=== PATIENT | male | born 1945 | race Caucasian/White ===

== ENCOUNTER 2016-08-28 17:29 | Observation (INO) | payer MEDICARE ==
[2016-08-28] MEDS ORDERED: ACETAMINOPHEN TAB 500 MG TAB PO STA (17:57)
[2016-08-28] MEDS ORDERED: ONDANSETRON 4 MG in SODIUM CHLORIDE 0.9% 50 ML IVPB ONE (17:57)
[2016-08-28] MEDS ORDERED: SODIUM CHLORIDE 0.9% 1,000 ML IV ONE (17:57)
[2016-08-28] MEDS ORDERED: ONDANSETRON 4 MG/2 ML VIAL IVP ONE (18:00)
--- NOTE | 2016-08-28 18:05 | ED ---
General Adult HPI - General Chief complaint: Nausea/Vomiting/Diarrhea Stated complaint: nausea, not feeling well, chills Source: patient Mode of arrival: wheelchair Limitations: no limitations - History of Present Illness Initial comments: Patient is a 71-year-old male who presents for evaluation for general malaise, nausea, vomiting 3 weeks. Past medical history significant for cardiovascular disease, diabetes, hypertension, hyperlipidemia, previous stroke. History is severely poor. Patient unable to fully articulate the symptoms that he is having and the duration. Patient states that he generally does not feel well for the past 3 weeks. He states that he began to feel worse after receiving a flu shot at his primary care physician's office. It initially started off as a runny nose and congestion which quickly progressed to nausea vomiting and body aches, frontal headache, intermittent chest pain which she relates to "angina". He is currently having subjective fevers and chills. He has a frontal headache that radiates down to the front of his face. He denies any congestion. States that he is very nauseous and having multiple episodes of emesis. He states that he vomited 4 times today which was mainly just stomach contents. He has a nonproductive cough. Decreased appetite today. Patient states that he has a known history of diabetes and takes insulin but cannot tell me how much she takes it if he is on a sliding scale. The chest pain that he is having he states that it is similar to previous episodes and again relates to his angina. His biggest concerns today are his headache, nausea, vomiting and general malaise. He denies active chest pain currently, congestion , changes in vision, diarrhea, abdominal pain. - Related Data Home Medications Medication Instructions Recorded Confirmed Aspirin 81 mg PO DAILY 08/28/16 08/28/16 Atenolol [Tenormin] 50 mg PO DAILY 08/28/16 08/28/16 Finasteride [Proscar] 5 mg PO DAILY 08/28/16 08/28/16 Hydrocodone/Acetaminophen [[place] 1 tab PO TID PRN 08/28/16 08/28/16 10-325] Insulin Glargine,Hum.rec.anlog 30 unit SQ QAM 08/28/16 08/28/16 [Lantus Solostar] Insulin Lispro [humaLOG Kwikpen] 6 unit SQ ACHS 08/28/16 08/28/16 Losartan Potassium [Cozaar] 50 mg PO DAILY 08/28/16 08/28/16 Nitroglycerin Sl Tabs [Nitrostat] 0.4 mg SUBLINGUAL Q5M PRN 08/28/16 08/28/16 Simvastatin [Zocor] 40 mg PO HS 08/28/16 08/28/16 amLODIPine BESYLATE [Norvasc] 10 mg PO DAILY 08/28/16 08/28/16 busPIRone HCL 7.5 mg PO HS 08/28/16 08/28/16 hydrOXYzine HCL [Atarax] 25 mg PO TID PRN 08/28/16 08/28/16 lamoTRIgine [LaMICtal] 25 mg PO BID 08/28/16 08/28/16 Allergies Allergy/AdvReac Type Severity Reaction Status Date / Time Sulfa (Sulfonamide Allergy Unknown Verified 08/28/16 18:39 Antibiotics) Childhood Review of Systems ROS Statement: Those systems with pertinent positive or pertinent negative responses have been documented in the HPI. ROS Other: All systems not noted in ROS Statement are negative. Past Medical History Past Medical History: Coronary Artery Disease (CAD), Chest Pain / Angina, CVA/ TIA, Diabetes Mellitus, Hyperlipidemia, Hypertension History of Any Multi-Drug Resistant Organisms: None Reported Past Surgical History: Adenoidectomy, Appendectomy, Back Surgery, Cholecystectomy, Heart Catheterization With Stent, Tonsillectomy Past Psychological History: No Psychological Hx Reported, Anxiety Smoking Status: Former smoker Past Alcohol Use History: None Reported Past Drug Use History: None Reported General Exam Limitations: no limitations General appearance: alert, in no apparent distress, other (Does not appear toxic ) Head exam: Present: atraumatic, normocephalic, normal inspection Eye exam: Present: normal appearance, PERRL, EOMI. Absent: scleral icterus, conjunctival injection, periorbital swelling ENT exam: Present: normal exam, mucous membranes moist, other (Dry mucous membranes) Neck exam: Present: normal inspection. Absent: tenderness, meningismus, lymphadenopathy Respiratory exam: Present: normal lung sounds bilaterally, other (Clear bilaterally without wheezes rales or rhonchi.). Absent: respiratory distress, wheezes, rales, rhonchi, stridor Cardiovascular Exam: Present: regular rate, normal rhythm, normal heart sounds, other (Normal S1 and S2. No murmurs.). Absent: systolic murmur, diastolic murmur, rubs, gallop, clicks GI/Abdominal exam: Present: soft, normal bowel sounds, other (Abdomen is soft and minimally tender. Migrating points of tenderness which seemed to be in the epigastric area mostly. Negative Guido sign. Negative McBurney sign. Negative psoas sign. Negative obturator sign. No rebound tenderness. No peritoneal signs.). Absent: distended, tenderness, guarding, rebound, rigid Extremities exam: Present: normal inspection, full ROM, normal capillary refill. Absent: tenderness, pedal edema, joint swelling, calf tenderness Back exam: Present: normal inspection Neurological exam: Present: alert, oriented X3, CN II-XII intact, other ( Cranial nerves II through XII grossly intact without focal neurological deficits. Is not ataxic with his upper extremities per se but moves very slowly. His mentation is appropriate. Moves all 4 extremities. 5 out of 5 strength of the upper or lower extremity is. Gait appears to be intact while ambulating to the room.) Psychiatric exam: Present: normal affect, normal mood Skin exam: Present: warm, dry, intact, normal color, other (There is a cellulitic process to the lower back. It is warm to the touch. No abscess appreciated.). Absent: rash Course Vital Signs 08/28/16 08/28/16 08/28/16 17:32 18:43 19:26 Temperature 99 F Pulse Rate 61 55 L 57 L Respiratory 16 18 14 Rate Blood Pressure 165/74 147/68 143/100 O2 Sat by Pulse 98 96 96 Oximetry 08/28/16 19:52 Temperature Pulse Rate 57 L Respiratory 14 Rate Blood Pressure 146/70 O2 Sat by Pulse 96 Oximetry Medical Decision Making - Medical Decision Making Patient presents with 3 weeks of generalized malaise, nausea, vomiting and intermittent episodes of shortness of breath cough subjective fevers chills chest pain. Very poor historian. Positive physical exam findings include questionable ataxia without lateralizing neurological deficits. His physical exam seems to be appropriate. His vital signs are stable at this time. Reviewed his EKG which revealed a sinus rhythm at 59. TX interval 154. QRS 100. QTc 429. No ST changes. Q waves in the inferior leads. No other arrhythmias. We'll order CT head to investigate this subjective headache and questionable ataxia, basic labs, cardiac profile, urinalysis, EKG. We'll give IV fluids, Zofran, Tylenol. 1951: Laboratory findings as below area unremarkable. Urinalysis negative. CT head revealed no acute process. Chest x-ray revealed no signs of pneumonia. EKG revealed no STEMI. Discussed with the patient. He seems to be more confused and states that he cannot answer basic questions. He is alert and oriented 3 but will sustaining correct answer and then corrects himself. His family member at bedside states that this is not like him at all. He's been acting this way for some time and is normally not forgetful. He states that he now has chest tightness. But states that he has been having chest tightness. Very inconsistent. I have a troponin pending right now. Patient cannot remember his primary care physician's name. We will page medicine on-call for observation. 2002: Discussed the case with [employer] of Dr. Spears - agree to observation. Requesting neuro be consulted. No further orders. - Lab Data Result diagrams: 08/28/16 18:05 08/28/16 18:05 Lab Results 08/28/16 08/28/16 08/28/16 Range/Units 18:05 18:05 18:05 WBC 10.1 (3.8-10.6) k/uL RBC 4.41 (4.30-5.90) m/uL Hgb 12.7 L (13.0-17.5) gm/dL Hct 36.3 L (39.0-53.0) % MCV 82.2 (80.0-100.0) fL MCH 28.8 (25.0-35.0) pg MCHC 35.0 (31.0-37.0) g/dL RDW 14.5 (11.5-15.5) % Plt Count 146 L (150-450) k/uL Neutrophils % 85 % Lymphocytes % 8 % Monocytes % 6 % Eosinophils % 1 % Basophils % 0 % Neutrophils # 8.5 H (1.3-7.7) k/uL Lymphocytes # 0.8 L (1.0-4.8) k/uL Monocytes # 0.6 (0-1.0) k/uL Eosinophils # 0.1 (0-0.7) k/uL Basophils # 0.0 (0-0.2) k/uL Hyperchromasia Slight Poikilocytosis Slight Sodium 137 (137-145) mmol/L Potassium 4.4 (3.5-5.1) mmol/L Chloride 100 (98-107) mmol/L Carbon Dioxide 25 (22-30) mmol/L Anion Gap 12 mmol/L BUN 19 (9-20) mg/dL Creatinine 1.00 (0.66-1.25) mg/dL Est GFR (MDRD) Af Amer >60 (>60 ml/min/1.73 sqM) Est GFR (MDRD) Non-Af >60 (>60 ml/min/1.73 sqM) Glucose 209 H (74-99) mg/dL Plasma Lactic Acid Sai (0.7-2.0) mmol/L Calcium 9.5 (8.4-10.2) mg/dL Magnesium 2.0 (1.6-2.3) mg/dL Total Bilirubin 1.1 (0.2-1.3) mg/dL AST 15 L (17-59) U/L ALT 26 (21-72) U/L Alkaline Phosphatase 94 (38-126) U/L Total Creatine Kinase 53 L (55-170) U/L CK-MB (CK-2) 0.4 (0.0-2.4) ng/mL CK-MB (CK-2) Rel Index 0.8 Total Protein 7.2 (6.3-8.2) g/dL Albumin 4.2 (3.5-5.0) g/dL Urine Color Urine Appearance (Clear) Urine pH (5.0-8.0) Ur Specific [place] (1.001-1.035) Urine Protein (Negative) Urine Glucose (UA) (Negative) Urine Ketones (Negative) Urine Blood (Negative) Urine Nitrate (Negative) Urine Bilirubin (Negative) Urine Urobilinogen (<2.0) mg/dL Ur Leukocyte Esterase (Negative) 08/28/16 08/28/16 Range/Units 18:05 19:20 WBC (3.8-10.6) k/uL RBC (4.30-5.90) m/uL Hgb (13.0-17.5) gm/dL Hct (39.0-53.0) % MCV (80.0-100.0) fL MCH (25.0-35.0) pg MCHC (31.0-37.0) g/dL RDW (11.5-15.5) % Plt Count (150-450) k/uL Neutrophils % % Lymphocytes % % Monocytes % % Eosinophils % % Basophils % % Neutrophils # (1.3-7.7) k/uL Lymphocytes # (1.0-4.8) k/uL Monocytes # (0-1.0) k/uL Eosinophils # (0-0.7) k/uL Basophils # (0-0.2) k/uL Hyperchromasia Poikilocytosis Sodium (137-145) mmol/L Potassium (3.5-5.1) mmol/L Chloride (98-107) mmol/L Carbon Dioxide (22-30) mmol/L Anion Gap mmol/L BUN (9-20) mg/dL Creatinine (0.66-1.25) mg/dL Est GFR (MDRD) Af Amer (>60 ml/min/1.73 sqM) Est GFR (MDRD) Non-Af (>60 ml/min/1.73 sqM) Glucose (74-99) mg/dL Plasma Lactic Acid Sai 1.0 (0.7-2.0) mmol/L Calcium (8.4-10.2) mg/dL Magnesium (1.6-2.3) mg/dL Total Bilirubin (0.2-1.3) mg/dL AST (17-59) U/L ALT (21-72) U/L Alkaline Phosphatase (38-126) U/L Total Creatine Kinase (55-170) U/L CK-MB (CK-2) (0.0-2.4) ng/mL CK-MB (CK-2) Rel Index Total Protein (6.3-8.2) g/dL Albumin (3.5-5.0) g/dL Urine Color Yellow Urine Appearance Clear (Clear) Urine pH 7.0 (5.0-8.0) Ur Specific [place] 1.015 (1.001-1.035) Urine Protein Trace H (Negative) Urine Glucose (UA) 2+ H (Negative) Urine Ketones Negative (Negative) Urine Blood Negative (Negative) Urine Nitrate Negative (Negative) Urine Bilirubin Negative (Negative) Urine Urobilinogen <2.0 (<2.0) mg/dL Ur Leukocyte Esterase Negative (Negative) Disposition Clinical Impression: Altered mental status, Chest pain, Nausea and vomiting, Diabetes Disposition: ADMITTED IP TO THIS HOSP Condition: Good Referrals: None,Stated [Primary Care Provider] - 1-2 days Decision to Admit Reason: Admit from EC
[2016-08-28 18:21] LABS: Basophils % (A) 0 %; CHCM 36.7; Eosinophils # (A) 0.1 k/uL (0-0.7); Eosinophils % (A) 1 %; HCT 36.3 % (39.0-53.0); HDW 3.46; HGB 12.7 gm/dL (13.0-17.5); Hyperchromasia Slight; Luc # (Auto) 0.13; Luc % (Auto) 1; Lymphocytes # (A) 0.8 k/uL (1.0-4.8); Lymphocytes % (A) 8 %; MCH 28.8 pg (25.0-35.0); MCV 82.2 fL (80.0-100.0); Mean Platelet Volume 6.6; Monocytes # (A) 0.6 k/uL (0-1.0); Monocytes % (A) 6 %; Neutrophils # (A) 8.5 k/uL (1.3-7.7); Neutrophils % (A) 85 %; Poikilocytosis Slight; RBC 4.41 m/uL (4.30-5.90); RDW 14.5 % (11.5-15.5); WBC 10.1 k/uL (3.8-10.6); WBC (Perox) 9.81
--- NOTE | 2016-08-28 18:32 | XR ---
EXAMINATION TYPE: XR chest 1V portable DATE OF EXAM: 08/28/2016 6:28 PM COMPARISON: NONE HISTORY: Cough and congestion TECHNIQUE: Single frontal view of the chest is obtained. FINDINGS: Heart and mediastinum are normal. Lungs are clear. Diaphragm is normal. There are chest le ads. Bony thorax is intact. IMPRESSION: Normal chest
--- NOTE | 2016-08-28 18:34 | CT ---
EXAMINATION TYPE: CT brain wo con DATE OF EXAM: 08/28/2016 6:29 PM COMPARISON: NONE HISTORY: weakness and fatigue CT DLP: 1219 mGycm Automated exposure control for dose reduction was used. FINDINGS: There is cerebral cortical atrophy. There is some prominence of the ventricles. There is no mass effe ct nor midline shift. There is no sign of intracranial hemorrhage. The calvarium is intact. There is mild mucosal thickening in the right maxillary sinus. IMPRESSION: Cerebral atrophy and mild normal pressure type hydrocephalus. No acute intracranial abnormality.
[2016-08-28 18:35] LABS: ALT 26 U/L (21-72); AST 15 U/L (17-59); Alkaline Phosphatase 94 U/L (38-126); Anion Gap 12 mmol/L; Blood Urea Nitrogen 19 mg/dL (9-20); Calcium 9.5 mg/dL (8.4-10.2); Carbon Dioxide 25 mmol/L (22-30); Chloride 100 mmol/L (98-107); Glucose 209 mg/dL (74-99); Non-African American GFR(MDRD) >60 (>60 ml/min/1.73 sqM); Potassium 4.4 mmol/L (3.5-5.1); Sodium 137 mmol/L (137-145); Total Bilirubin 1.1 mg/dL (0.2-1.3); Total Protein 7.2 g/dL (6.3-8.2)
[2016-08-28] MEDS: SODIUM CHLORIDE 0.9% 1,000 ML IV SCH (18:35)
[2016-08-28 18:54] LABS: Creatine Kinase MB 0.4 ng/mL (0.0-2.4)
[2016-08-28 19:34] LABS: Appearance,Urine Clear (Clear); Bilirubin,Urine Negative (Negative); Glucose,Urine (UA) 2+ (Negative); Ketones,Urine Negative (Negative); Leukocyte Esterase,Urine Negative (Negative); Nitrite,Urine Negative (Negative); Protein,Urine Trace (Negative); Specific Gravity,Urine 1.015 (1.001-1.035); UA Billing (MACRO vs. MICRO) CHEM; Urobilinogen,Urine <2.0 mg/dL (<2.0)
[2016-08-28] MEDS ORDERED: ASPIRIN 81 MG CHEW PO STA (19:50)
[2016-08-28] MEDS ORDERED: NALOXONE 0.4 MG/ML 1 ML VIAL IV PRN (19:59)
[2016-08-28] MEDS ORDERED: hydrOXYzine HCL 25 MG TAB PO PRN (21:51)
[2016-08-28] MEDS ORDERED: HYDROcodone/APAP 10-325MG 1 EACH TAB PO PRN (21:51)
[2016-08-28] MEDS ORDERED: NITROGLYCERIN SL TABS 0.4 MG TAB SUBLINGUAL PRN (21:51)
[2016-08-28] MEDS: ONDANSETRON 4 MG/2 ML VIAL IVP PRN (22:16)
[2016-08-28 23:59] LABS: Creatine Kinase 86 U/L (55-170)
[2016-08-29 00:12] LABS: Creatine Kinase MB 0.4 ng/mL (0.0-2.4); Troponin I <0.012 ng/mL (0.000-0.034)
[2016-08-29 06:37] LABS: Glucose,Whole Blood 198 mg/dL (75-99)
[2016-08-29] MEDS: ONDANSETRON 4 MG/2 ML VIAL IVP PRN (06:44)
[2016-08-29 07:14] VITALS: PULSE 50; RESP 18
[2016-08-29 07:27] LABS: Creatine Kinase 98 U/L (55-170)
[2016-08-29 07:40] LABS: Creatine Kinase MB 0.6 ng/mL (0.0-2.4); Troponin I <0.012 ng/mL (0.000-0.034)
[2016-08-29] MEDS: INSULIN LISPRO (humaLOG) 300 UNIT/3 ML VIAL SQ SCH ×2 (08:10→12:35)
[2016-08-29] MEDS: SODIUM CHLORIDE 0.9% 1,000 ML IV SCH (08:12)
[2016-08-29] MEDS ORDERED: ATENOLOL 50 MG TAB PO SCH (09:00)
[2016-08-29] MEDS ORDERED: LOSARTAN 50 MG TAB PO SCH (09:00)
[2016-08-29] MEDS ORDERED: INSULIN GLARGINE 100 UNIT/ML 10 ML VIAL SQ SCH (09:00)
[2016-08-29] MEDS ORDERED: lamoTRIgine 25 MG TAB PO SCH (09:00)
[2016-08-29] MEDS ORDERED: FINASTERIDE 5 MG TAB PO SCH (09:00)
[2016-08-29] MEDS ORDERED: ASPIRIN 81 MG CHEW PO SCH (09:00)
[2016-08-29 10:39] VITALS: BMI 35.9
[2016-08-29 11:36] VITALS: BP 119/68; TEMP 98.5
[2016-08-29 11:47] LABS: Glucose,Whole Blood 165 mg/dL (75-99)
[2016-08-29 12:35] LABS: Hemoglobin A1C 6.6 % (4.2-6.1)
--- NOTE | 2016-08-29 17:06 | HP ---
DATE OF ADMISSION: 08/28/2016 HISTORY AND PHYSICAL EXAMINATION/DISCHARGE SUMMARY: 71-year-old gentleman who was complaining of generalized nausea, and vomiting has been going on for several days, about 14 days and patient although these symptoms completely resolved at this point of time. Patient is a very poor historian, has multiple symptoms. Patient does appear to have early dementia, although I did not do any Mini-Mental Status Examination. Apparently patient had an MRA which showed evidence of significant shrinkage of brain and patient does have a family history of Alzheimer's dementia, because of his dementia issues, patient is not able to provide me a good history. Patient has multitude of these symptoms which he does not even remember. Patient is complaining of some nonspecific chest pain. The patient is unable to characterize the chest pain, although it completed resolved as per the patient. The patient had cardiac catheterization and stents that were placed in the past. The patient Troponins are negative. EKG did not show any acute ST-T wave changes and patient was also ( ). The patient diarrhea completed resolved. Patient recovered recently from flu. Patient follows with Dr. Yousuf Ray as an outpatient. Patient was admitted for altered mental status, although I do not ( ) the patient is alert and oriented x3 at this point of time and it appears like patient has patient has dementia more than that. I did not see any delirium in his situation and the patient denied any cough or runny nose. Patient denied any dysuria, nausea, vomiting. Patient will be discharged today. I do not believe the patient's chest pain is not typical for cardiac chest pain. Patient anyways will get a stress test on Thursday, outpatient stress test was ordered and patient will be referred to neurology. The patient will be started on Aricept. Regarding his home situation, was extensively evaluated and the patient apparently lives with [id number] and his daughter lives in [place] and patient is planning to move to [place]. Patient will need family support. His whole work-up here is negative. Patient will need support regarding his medications as well as patient appears to have some retrograde amnesia from his dementia. REVIEW OF SYSTEMS: CONSTITUTIONAL: No fever, no malaise, no fatigue. HEENT: No recent visual problems or hearing problems. Denied any sore throat. PULMONARY: No shortness of breath, no cough, no hemoptysis. GASTROINTESTINAL: As described in HPI. CARDIOVASCULAR: As in HPI. NEUROLOGICAL: No headaches, no weakness, no numbness. HEMATOLOGICAL: Denies any bleeding or petechiae. GENITOURINARY: Denies any burning micturition, frequency, or urgency. MUSCULOSKELETAL/RHEUMATOLOGICAL: Denies any joint pain, swelling, or any muscle pain. ENDOCRINE: Denies any polyuria or polydipsia. The rest of the 14 point review of systems is negative. Home medications include: 1. Aspirin. 2. Atenolol. 3. Finasteride. 4. Acetaminophen. 5. Hydrocodone. 6. Glargine. 7. Lispro. 8. Losartan. 9. Nitroglycerin. 10. Simvastatin. 11. Amlodipine. 12. ( ). 13. Hydroxyzine. 14. Lamotrigine. PAST MEDICAL HISTORY: Coronary artery disease, CVA, TIA, diabetes mellitus, hyperlipidemia, hypertension, appendectomy, adenoidectomy, back surgery, cholecystectomy, cardiac catheterization with stent placement, tonsillectomy. SOCIAL HISTORY: Former smoker. Denied any alcohol abuse or any drug abuse. FAMILY HISTORY: Significant for both parents with Alzheimer's dementia. PHYSICAL EXAMINATION: Temperature 98.4, pulse of 50, respiratory rate of 18, blood pressure 119/68, saturating at 95% on room air. GENERAL: Obese gentleman. Alert and oriented x3. HEENT: Pupils are round and equally reacting to light. EOMI. No scleral icterus. No conjunctival pallor. Normocephalic, atraumatic. No pharyngeal erythema. No thyromegaly. CARDIOVASCULAR: S1 and S2 present. No murmurs, rubs, or gallops. PULMONARY: Chest is clear to auscultation, no wheezing or crackles. ABDOMEN: Soft, nontender, nondistended, normoactive bowel sounds. No palpable organomegaly. MUSCULOSKELETAL: No joint swelling or deformity. EXTREMITIES: No cyanosis, clubbing, or pedal edema. NEUROLOGICAL: Gross neurological examination did not reveal any focal deficits. SKIN: No rashes. Laboratory data no significant overt abnormality was appreciated. CT of the head was obtained, which showed cerebral atrophy. The patient I believe has normal ventricular size for his atrophic brain and age. ASSESSMENT AND PLAN: 1. Nausea, vomiting, diarrhea, probably due to what to viral gastroenteritis. Symptoms completely resolved at this point of time. 2. Chest pain, appears to be nonspecific noncardiac in nature. Outpatient stress test as mentioned above. Ruled out acute coronary artery syndrome. 3. Dementia appears to be mild to moderate. Patient will be started on Aricept and patient will be referred to neurology. I do not believe patient needs to stay in the hospital for neurological evaluation, that is I do not believe patient has delirium or acute neurological event going on at this point of time. 4. Hypertension. 5. Coronary artery disease. 6. Hyperlipidemia. 7. Osteoarthritis. 8. Benign prostatic hypertrophy. 9. Obesity. 10. Sleep apnea for which we will continue his CPAP machine. For above-mentioned chronic medical problems, he can continue his home medications. Patient was instructed that he will need to family support. This dictation is both H&P and discharge summary.
[2016-08-29] MEDS ORDERED: ATORVASTATIN 20 MG TAB PO SCH (21:00)
[2016-08-29] MEDS ORDERED: busPIRone HCl 5 MG TAB PO SCH (21:00)
== END 2016-08-29 14:25 | disposition home or self-care (01) ==
LOC: EC 17:29 → 3OBS 19:59
PROVIDERS: ADMIT Hospitalist; ATTEND Hospitalist
DX: R11.2 Nausea with vomiting, unspecified (principal); R19.7 Diarrhea, unspecified; R07.89 Other chest pain; F03.90 Unspecified dementia, unspecified severity, without behavioral disturbance, psychotic disturbance, mood disturbance, and anxiety; I10 Essential (primary) hypertension; I25.10 Atherosclerotic heart disease of native coronary artery without angina pectoris; E78.5 Hyperlipidemia, unspecified; R05 Cough; R06.02 Shortness of breath; R51 Headache; R53.81 Other malaise; R63.0 Anorexia; R50.9 Fever, unspecified; F41.9 Anxiety disorder, unspecified; M19.90 Unspecified osteoarthritis, unspecified site; N40.0 Benign prostatic hyperplasia without lower urinary tract symptoms; G47.30 Sleep apnea, unspecified; Z99.89 Dependence on other enabling machines and devices; E66.9 Obesity, unspecified; E11.9 Type 2 diabetes mellitus without complications; Z79.82 Long term (current) use of aspirin; Z79.899 Other long term (current) drug therapy; Z79.4 Long term (current) use of insulin; Z88.2 Allergy status to sulfonamides; Z86.73 Personal history of transient ischemic attack (TIA), and cerebral infarction without residual deficits; Z87.891 Personal history of nicotine dependence; Z82.0 Family history of epilepsy and other diseases of the nervous system; Z95.5 Presence of coronary angioplasty implant and graft
CPT/HCPCS: 36415; 93005; 80053; 83036; 82550 ×2; 82553 ×2; 83605; 83735; 84484 ×2; 85025; 81003; 87040; 71010; 70450; 96374; 96361; 99285; G0378 ×2; S0138; J2405 ×2; 96376